=== PATIENT | female | born 1945 | race Caucasian/White ===

== ENCOUNTER 2016-12-31 07:56 | Inpatient (IN) | payer OTHER, MEDICARE ==
[2016-12-31] MEDS ORDERED: ROPIVACAINE 0.2% 80 MG, EPINEPHrine 0.2 MG, KETOROLAC TROMETHAMINE 30 MG in BAG 0 ML IU ONE (08:00)
[2016-12-31] MEDS ORDERED: TRANEXAMIC ACID 3,000 MG in NS 50 ML IRR ONE (08:00)
[2016-12-31] MEDS ORDERED: FAMOTIDINE 20 MG TAB PO ONE (08:18)
[2016-12-31] MEDS ORDERED: DEXAMETHASONE 4 MG/ML VIAL IVP ONE (08:18)
[2016-12-31] MEDS ORDERED: ACETAMINOPHEN 325 MG TAB PO ONE (08:18)
[2016-12-31] MEDS ORDERED: ceFAZolin 2 GM/DEXTROSE 100 ML IV ONE (08:18)
[2016-12-31] MEDS ORDERED: LR 1,000 ML IV ONE (08:19)
[2016-12-31] MEDS ORDERED: LIDOCAINE 1% 2 ML INJ ID PRN (08:19)
[2016-12-31] MEDS ORDERED: VANCOMYCIN 1 GM VIAL ONE (10:01)
[2016-12-31] MEDS ORDERED: TRANEXAMIC ACID 3,000 MG/50 ML BAG IRR ONE (10:01)
--- NOTE | 2016-12-31 10:16 | PDHPUP ---
History & Physical Update H&P update statement: This history and physical update is based on an assessment of the patient which was completed after admission or registration (within 24 hours), but prior to the surgery/procedure. H&P update: H&P reviewed & patient examined, no change in patient's condition since H&P completed
--- NOTE | 2016-12-31 10:28 | PDANEPAE ---
ANE History of Present Illness r knee osteoarthritis, knee pain ANE Past Medical History - Cardiovascular History Hx Hypertension: No Hx Arrhythmias: No Hx Chest Pain: No Hx Coronary Artery / Peripheral Vascular Disease: No Hx CHF / Valvular Disease: No Hx Palpitations: No - Pulmonary History Hx COPD: No Hx Asthma/Reactive Airway Disease: No Hx Recent Upper Respiratory Infection: No Hx Oxygen in Use at Home: No Hx Sleep Apnea: No Sleep Apnea Screening Result - Last Documented: Negative - Neurologic History Hx Cerebrovascular Accident: No Hx Seizures: No Hx Dementia: No - Endocrine History Hx Diabetes: No Endocrine History Comment: BORDERLINE ELEV BLOOD GLUCOSE - Renal History Hx Renal Disorders: No - Liver History Hx Hepatic Disorders: No - Neurological & Psychiatric Hx Hx Neurological and Psychiatric Disorders: No Neurological / Psychiatric History Comment: SITUATIONAL DEPRESSION IN PAST - Cancer History Hx Cancer: Yes 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 LAPAROTOMY ENDOMETRIOSIS. COLONOSCOPY ANE Review of Systems Review of Systems: - Exercise capacity METS (RN): 4 METS ANE Patient History - Allergies Allergies/Adverse Reactions: omeprazole [From Prilosec] Allergy (Verified 12/16/16 11:48) Swelling/neck,face,throat - Home Medications Home Medications: Aspirin [Aspirin 325 mg (*)] 325 mg PO DAILY 10/08/12 [Last Taken Unknown] Famotidine [Pepcid 20 MG (*)] 20 mg PO DAILY PRN 12/16/16 [Last Taken Unknown] Fluticasone Nasal [Flonase Nasal [place] (RX)] 1 sprays NASAL DAILY PRN 12/16/16 [ Last Taken Unknown] [place]-3 Fatty Acids [Fish Oil 1000 mg (*)] 1,000 mg PO DAILY 12/16/16 [Last Taken Unknown] RX: Herbals/Supplements -Info Only 1 ea PO DAILY 12/16/16 [Last Taken Unknown] Tears/Dextran 70/Hypromellose [Natural Balance Tears (*)] 1 drop EACHEYE DAILY PRN 12/16/16 [Last Taken Unknown] - NPO status NPO Since - Liquids (Date): 12/31/16 NPO Since - Liquids (Time): 06:45 NPO Since - Solids (Date): 12/30/16 NPO Since - Solids (Time): 22:30 - Smoking Hx Smoking Status: Never smoked - Family Anes Hx Family Hx Anesthesia Complications: NEG ANE Labs/Vital Signs - Vital Signs Blood Pressure: 149/80 Heart Rate: 80 Respiratory Rate: 16 O2 Sat (%): 94 Height: 157.48 cm Weight: 70.307 kg ANE Physical Exam - Airway Neck exam: FROM Mallampati Score: Class 3 Mouth exam: normal dental/mouth exam - Pulmonary Pulmonary: no respiratory distress - Cardiovascular Cardiovascular: regular rate and rhythym - ASA Status ASA Status: II ANE Anesthesia Plan Anesthesia Plan: MAC, spinal Regional Anesthesia: adductor canal FNB
[2016-12-31] MEDS ORDERED: fentaNYL 100 MCG/2 ML INJ ONE (10:39)
[2016-12-31] MEDS ORDERED: PROPOFOL/EMULSION 500 MG/50 ML BOTTLE IV ONE (10:40)
[2016-12-31] MEDS ORDERED: ONDANSETRON 4 MG/2 ML VIAL IVP PRN ×2 (11:22→12:41)
[2016-12-31] MEDS ORDERED: NALOXONE HCL 0.4 MG/ML INJ IVP PRN (11:22)
[2016-12-31] MEDS ORDERED: fentaNYL 100 MCG/2 ML INJ IVP PRN (11:22)
[2016-12-31] MEDS ORDERED: PROMETHAZINE HCL 25 MG/ML INJ IVP PRN ×2 (11:22→12:41)
[2016-12-31] MEDS ORDERED: HYDROmorphONE/DILAUDID 1 MG/ML INJ IVP PRN (11:22)
[2016-12-31] MEDS ORDERED: ROPIVACAINE HCL 150 MG/30 ML INJ ONE (11:34)
[2016-12-31] MEDS ORDERED: DEXAMETHASONE 4 MG/ML VIAL ONE (11:34)
[2016-12-31] MEDS ORDERED: ONDANSETRON 4 MG/2 ML VIAL ONE (11:34)
[2016-12-31] MEDS ORDERED: PROPOFOL 200 MG/20 ML VIAL ONE (12:11)
[2016-12-31] MEDS ORDERED: diphenhydrAMINE 25 MG CAP PO PRN (12:41)
[2016-12-31] MEDS ORDERED: METOCLOPRAMIDE 10 MG/2 ML VIAL IVP PRN (12:41)
[2016-12-31] MEDS ORDERED: CYCLOBENZAPRINE 10 MG TAB PO PRN (12:41)
[2016-12-31] MEDS ORDERED: MAGNESIUM HYDROXIDE 30 ML UDCUP PO PRN (12:41)
[2016-12-31] MEDS ORDERED: LACTULOSE 20 GM/30 ML UDCUP PO PRN (12:41)
[2016-12-31] MEDS ORDERED: DIPHENOXYLATE/ATROPINE LOMOTIL 1 TAB PO PRN (12:41)
[2016-12-31] MEDS ORDERED: POLYETHYLENE GLYCOL 3350 17 GM PKT PO PRN (12:41)
[2016-12-31] MEDS ORDERED: ONDANSETRON DISINTEGRATING 4 MG TAB PO PRN (12:41)
[2016-12-31] MEDS ORDERED: PROMETHAZINE HCL 25 MG SUPPR PR PRN (12:41)
[2016-12-31] MEDS ORDERED: BISACODYL 10 MG SUPP PR PRN (12:41)
[2016-12-31] MEDS ORDERED: TEMAZEPAM 15 MG CAP PO PRN (12:41)
--- NOTE | 2016-12-31 12:41 | POSTOPPROG ---
Post Op Note Date of Operation: 12/31/16 Surgeon: Iggy Healy Rehab Spec: Gabriela Anesthesiologist: Jose Anesthesia: Spinal Pre-op Diagnosis: R eric DJD Post-op Diagnosis: same Indication: pain Procedure: R TKA Findings: knee Djd Inf/Abcess present in the surg proc area at time of surgery?: No EBL: 100-500
--- NOTE | 2016-12-31 12:54 | POSTANESTH ---
Post Anesthetic Evaluation Cardiovascular Status: Normal, Stable Respiratory Status: Normal, Stable Level of Consciousness/Mental Status: Can Participate in Eval Pain Control: Adequate, Prn Tx Ordered Nausea/Vomiting Control: Adequate, Prn Tx Ordered Complications Possibly Related to Anesthesia: None Noted
[2016-12-31] MEDS ORDERED: LR 1,000 ML IV SCH (13:00)
[2016-12-31] MEDS: ceFAZolin 2 GM/DEXTROSE 100 ML IV SCH ×2 (14:58→21:59)
[2016-12-31] MEDS: oxyCODONE IR 5 MG TAB PO PRN (15:05)
[2016-12-31] MEDS: ACETAMINOPHEN 325 MG TAB PO SCH ×2 (18:01→23:45)
[2016-12-31] MEDS: ASPIRIN 325 MG TAB PO SCH (20:27)
[2016-12-31] MEDS: FAMOTIDINE 20 MG TAB PO SCH (20:28)
[2016-12-31] MEDS: SENNOSIDES/DOCUSATE SODIUM TAB PO SCH (20:28)
--- NOTE | 2016-12-31 23:19 | GOP ---
[f rep st] OPERATIVE REPORT DATE OF OPERATION: 12/31/2016 SURGEON: Aurelia Healy MD ANESTHESIA: Spinal. PREOPERATIVE DIAGNOSIS: Right knee osteoarthritis. POSTOPERATIVE DIAGNOSIS: Right knee osteoarthritis. PROCEDURE PERFORMED: Right total knee arthroplasty. FINDINGS: ESTIMATED BLOOD LOSS: 30 cc. INDICATIONS: This is a 71-year-old female with severe and progressive pain and deformity of the righ t knee unresponsive to conservative care. Risks and benefits of the surgical intervention were expla ined in detail. DESCRIPTION OF PROCEDURE: The patient was brought to the operative room and placed on the table in t he supine position. Spinal anesthesia was induced without difficulty. A pneumatic tourniquet was ap plied about the right proximal thigh, and the leg was prepped and draped in a sterile fashion. The l eg troncoso was applied. After exsanguination by elevation the tourniquet was inflated to 275 mm of me rcury. Incision was made anterior medial from the tibial tuberosity to a point 2 cm proximal to the superior pole of the patella. Medial parapatellar arthrotomy was carried out from the superior pole of the p atella and posteriorly in line with the fibers of the Type II VMO. The medial collateral ligament wa s elevated and the infrapatellar fat pad was resected. The patella was everted and the articular surface was excised. A 32 mm patellar button was placed. T he distal femoral guide hole was drilled and the 60-degree alignment zen was placed. An 8 mm distal femoral cut was made without difficulty. Attention was turned to the tibia and a standard 9 mm cut based on the lateral tibial condyle was per formed. The tibial articular surface was excised without difficulty. Attention was turned back to the femur and a size 4 femoral cutting block was positioned. Anterior, posterior, and chamfer cuts were made, followed by the intercondylar box cut. The knee was extended and the remnants of the medial and lateral meniscus were excised. The posterio r capsule was injected with ropivacaine, epinephrine and Toradol. A size 32 tibial tray was position ed. Trial reduction was then carried out. There was excellent range of motion, alignment, and stabi lity using the 9 mm polyethylene. All trials were then removed. The joint was thoroughly irrigated and carefully dried. Two packages of cement and 2 grams of vancomycin were mixed in the vacuum mixer and placed on the fixation surface s of all surfaces of the components. The components were implanted and all excess cement was thoroug hly removed. The permanent 9 mm polyethylene was placed without difficulty. The tourniquet was deflated and all bleeders were coagulated. The wound was thoroughly irrigated and closed using interrupted sutures of 2-0 Vicryl for the joint capsule. The subcu was closed with 3-0 Vicryl and the skin with 4-0 Monocryl. Dermabond and Steri-Strips were applied followed by a compre ssive dressing. The patient was then moved from the operating room to the recovery room in good cond ition, having tolerated the procedure well. /[id number]/MODL
[2017-01-01 04:27] VITALS: RESP 16
[2017-01-01] MEDS: ACETAMINOPHEN 325 MG TAB PO SCH ×2 (05:04→11:49)
[2017-01-01 05:33] LABS: HEMATOCRIT 30.9 % (38.0-47.0); HEMOGLOBIN 10.5 g/dL (12.6-16.3)
[2017-01-01 07:42] VITALS: BP 114/59; PULSE 69; TEMP 97.9; O2SAT 95
[2017-01-01] MEDS: SENNOSIDES/DOCUSATE SODIUM TAB PO SCH (08:46)
[2017-01-01] MEDS: ASPIRIN 325 MG TAB PO SCH (08:46)
[2017-01-01] MEDS: FAMOTIDINE 20 MG TAB PO SCH (08:49)
--- NOTE | 2017-01-01 10:25 | SOAPPROG ---
SOAP Progress Note Assessment/Plan: Assessment: Patient is doing well POD 1 s/p R TKA Pain management: pain is well controlled on oral pain meds. VTE ppx: recommend aspirin daily for 3 weeks, cont ZULLY and SCDs Anemia: level is expected initially postop. Asymptomatic. Continue to monitor D/c planning: d/c to home today pending release from PT Plan: 01/01/17 10:25 Objective: Vital Signs Temp Pulse Resp BP Pulse Ox 36.6 C 69 16 114/59 L 95 01/01/17 07:40 01/01/17 07:40 01/01/17 07:40 01/01/17 07:40 01/01/17 07:40 Laboratory Results 01/01/17 05:04 12/31/16 01/01/17 01/02/17 05:59 05:59 05:59 Intake Total 2 Output Total 1000 400 Balance 1062 -400 ICD10 Worksheet Patient Problems: Problems Problem Status Onset Osteoarthritis of knee Acute - ICD10 Problem Qualifiers (1) Osteoarthritis of knee Qualifiers: Osteoarthritis type: primary Laterality: right Qualified Code(s): M17.11 - Unilateral primary osteoarthritis, right knee
[2017-01-01] MEDS: oxyCODONE IR 5 MG TAB PO PRN (11:51)
--- NOTE | 2017-01-01 12:07 | ASDISCHSUM ---
Discharge Information Plan Status:Home with No Needs Medically Cleared to Leave: Discharge Date: CM D/C Disposition:Home, Routine, Self-Care ADT D/C Disposition:Home, Routine, Self-Care Projected Discharge Date:01/01/2017 12:00 AM Transportation at D/C:Family Discharge Delay Reason: Follow-Up Date:01/01/2017 12:00 AM Discharge Slot: Final Diagnosis:Unilateral Primary Osteoarthritis of Knee Placement Information Patient Contact Information Contact Name:RYAN Relationship: Address:[address] [place] Work Phone: City:[place] Alternate Phone: [facility]/Zip Code:[place] [address] Email: Financial Information Financial Class: Primary Plan Desc:MEDICARE INPATIENT Primary Plan Number:[id number] Secondary Plan Desc:[employer]/M[employer] SUPPLEMENT Secondary Plan Number:[id number] Assessment Information [facility] CM Progress Note CM Note CM Note Notes: Patient discharging home following surgery for osteoarthritis of knee. Patient to follow up with outpatient physical therapy. No additional Case management needs at this time. Date Signed: 01/01/2017 12:06 PM Electronically Signed By:GRACE Camargo Intervention Information
== END 2017-01-01 12:30 | disposition home or self-care (01) | DRG 470 ==
LOC: F3N 07:56
PROVIDERS: ADMIT Orthopaedic Surgery; ATTEND Orthopaedic Surgery
PROC: 0SRC0J9 Replacement of Right Knee Joint with Synthetic Substitute, Cemented, Open Approach (ICD-10-PCS; principal; 2016-12-31 10:15)
DX: M17.11 Unilateral primary osteoarthritis, right knee (principal); E78.00 Pure hypercholesterolemia, unspecified; K21.9 Gastro-esophageal reflux disease without esophagitis; M85.80 Other specified disorders of bone density and structure, unspecified site; Z85.820 Personal history of malignant melanoma of skin
CPT/HCPCS: 97161-GP; 97165-GO; C1713; G8978-GP-CJ; G8979-GP-CJ; G8980-GP-CJ; G8987-GO-CI; G8988-GO-CI; G8989-GO-CI; J0171; J0690; J1100; J1885; J2405; J2704; J2795; J3010; J3370